=== PATIENT | female | born 1985 | race Caucasian/White ===

== ENCOUNTER 2019-04-04 13:49 | Emergency (ER) | payer MEDICAID ==
[~2019-04-04] VITALS: Ht 165.1 cm; Wt 163.3 kg
[2019-04-04 13:54] VITALS: Ht 165.1 cm; Wt 163.3 kg
[2019-04-04 14:48] LABS: BASOPHIL % 1.6 % (0-2); PLATELET COUNT 274 x10^3mcL (130-400)
[2019-04-04 14:49] LABS: RED CELL DISTRIBUTION WIDTH 17.7 % (11.5-14.5)
[2019-04-04 15:41] VITALS: BP 149/74
== END 2019-04-04 15:41 | disposition home or self-care (01) ==
LOC: ED 13:49
PROVIDERS: Emergency Medicine
DX: N93.8 Other specified abnormal uterine and vaginal bleeding (principal)
CPT/HCPCS: 36415; J1885; J7030